=== PATIENT | male | born 1975 | race Asian ===

== ENCOUNTER 2020-12-20 15:08 | Emergency (ER) | payer OTHER ==
[2020-12-20 15:19] VITALS: BP 135/89
--- NOTE | 2020-12-20 15:24 | ED Physician Documentation ---
PD HPI WOUND RECHECK - Stated complaint Stated Complaint: STITCH REMOVAL - Chief complaint Chief Complaint: General - Histroy obtained from History obtained from: Patient - History of Present Illness Location: Right Hand (middle finger distal pad.) Timing - onset: How many days ago (10) Associated symptoms: No: Redness, Swelling, Drainage Recently seen: Emergency Dept (He had the wound repaired at [facility] 10 days ago. He has been caring for it with cleaning and ointment. The wound looks good.) Review of Systems Constitutional: denies: Fever, Chills Neurologic: denies: Focal weakness, Numbness PD PAST MEDICAL HISTORY - Past Medical History Past Medical History: Yes Cardiovascular: None Respiratory: None Neuro: None Endocrine/Autoimmune: None GI: None : None HEENT: None Psych: None Musculoskeletal: None Derm: None - Past Surgical History Past Surgical History: No - Present Medications Home Medications: Ambulatory Orders Medication Instructions Recorded Confirmed No Known Home Medications 12/20/20 12/20/20 - Allergies Allergies/Adverse Reactions: Allergies Allergy/AdvReac Type Severity Reaction Status Date / Time No Known Drug Allergies Allergy Verified 12/20/20 15:15 - Social History Does the pt smoke?: Yes Smoking Status: Current every day smoker Does the pt drink ETOH?: No Does the pt have substance abuse?: No - Immunizations Immunizations are current?: Yes PD ED PE NORMAL - Vitals Vital signs reviewed: Yes - General General: Alert and oriented X 3, No acute distress, Well developed/nourished - Derm Derm: Normal color, Warm and dry - Extremities Extremities: Other (Flap laceration with the wound adherent. Circumferential sutures in place. No signs of infection. Slight whitish notes at one edge of the flap but otherwise looking pink) - Neuro Neuro: No motor deficit, No sensory deficit Results - Vitals Vitals: Vital Signs - 24 hr 12/20/20 15:15 Temperature 36.9 C Heart Rate 66 Respiratory 16 Rate Blood Pressure 135/89 H O2 Saturation 99 Oxygen O2 Source Room air Procedures - Suture/staple Removal (location) right middle finger Suture/staple removal: # sutures (all of them), Other (removed by nursing) PD MEDICAL DECISION MAKING - ED course Complexity details: considered differential (Flap laceration with the wound adherent. Circumferential sutures in place. No signs of infection. Slight whitish notes at one edge of the flap but otherwise looking pink), d/w patient Departure - Departure Disposition: 01 Home, Self Care Clinical Impression: Encounter for removal of sutures Condition: Stable Record reviewed to determine appropriate education?: Yes Instructions: ED Wound Check Sutr Remove No Infec Comments: The wound appears improving as expected. It does look like it can be without the support of the sutures at this time. It still obviously is on progress of healing and will still be another week or 2. Continue with cleaning and ointment lightly to the area. Keep it protected with dressing and the splint while it continues to fully heal. Recheck if signs of infection.
== END 2020-12-20 16:05 | disposition home or self-care (01) ==
LOC: ED 15:08
DX: S61.212D Laceration without foreign body of right middle finger without damage to nail, subsequent encounter (principal); X58.XXXD Exposure to other specified factors, subsequent encounter; F17.200 Nicotine dependence, unspecified, uncomplicated
CPT/HCPCS: 99281